=== PATIENT | male | born 1990 | race American Indian/Alaskan Native ===

== ENCOUNTER 2019-06-06 14:22 | Emergency (ER) | payer MEDICAID ==
--- NOTE | 2019-06-06 14:34 | Event Note ---
ED Screening Note ED Screening Note: Pt released from [facility] yesterday lives in a nursing home no HI/SI generalized abd pain that began last night N/V/D no sick contacts no fever PMHx DM, GERD, HTN, HLD, ADHD, pancreatitis, bipolar/schizoaffective, PTSD allergy: lamotrigine This initial assessment/diagnostic orders/clinical plan/treatment(s) is/are subject to change based on patients health status, clinical progression and re- assessment by fellow clinical providers in the ED. Further treatment and workup at subsequent clinical providers discretion. Patient/guardian urged not to elope from the ED as their condition may be serious if not clinically assessed and managed. Initial orders include: labs
[2019-06-06] MEDS ORDERED: ONDANSETRON 4 MG/2 ML INJ IV ONE (14:41)
[2019-06-06] MEDS ORDERED: SODIUM CHLORIDE 0.9% 1000 ML 1,000 ML IV ONE (14:41)
[2019-06-06] MEDS ORDERED: LOPERAMIDE 2 MG CAP PO ONE (14:41)
--- NOTE | 2019-06-06 14:43 | Emergency Department Report ---
ED N/V/D HPI - General Chief complaint: Nausea/Vomiting/Diarrhea Stated complaint: DIZZY/NAUSEA/RAPID HEART BEAT Time Seen by Provider: 06/06/19 14:31 Source: patient Mode of arrival: Ambulatory Limitations: No Limitations - History of Present Illness Initial comments: Mr. Duff is a 28-year-old male with history of insulin-dependent diabetes, ADHD, schizoaffective disorder, GERD, some edema, hypertension who was recently discharged from [facility] in [facility]. He developed diarrhea last night. Also developed vomiting today. Denies malaise. Rapid heartbeat. MD complaint: nausea, vomiting, diarrhea -: Gradual, Last night Description of Vomiting: food contents Description of Diarrhea: water Associated Abdominal Pain: No Severity: mild Consistency: constant Improves with: none Worsens with: none Context: sick contacts - Related Data Home Medications Medication Instructions Recorded Confirmed Last Taken diphenhydrAMINE [Benadryl CAP] 1 tab PO DAILY 06/06/19 06/06/19 Unknown metFORMIN [Glucophage] 1 tab PO BID 06/06/19 06/06/19 Unknown traZODone [Desyrel] 1 tab PO HS 06/06/19 06/06/19 Unknown Allergies Allergy/AdvReac Type Severity Reaction Status Date / Time lamotrigine [From Lamictal] Allergy Rash Verified 06/06/19 14:25 ED Review of Systems ROS: Stated complaint: DIZZY/NAUSEA/RAPID HEART BEAT Other details as noted in HPI Comment: All other systems reviewed and negative Constitutional: malaise. denies: fever Gastrointestinal: nausea, vomiting, diarrhea. denies: abdominal pain Musculoskeletal: denies: as per HPI Skin: denies: rash, lesions ED Past Medical Hx - Past Medical History Previous Medical History?: Yes Hx Hypertension: Yes Hx Diabetes: Yes Hx Psychiatric Treatment: Yes (ADHD/ SCHIZO EFFECTIVE DISORDER) Additional medical history: GERD/ HYPERLIPIDEMNIA - Social History Smoking Status: Never Smoker Substance Use Type: None - Medications Home Medications: Home Medications Medication Instructions Recorded Confirmed Last Taken Type diphenhydrAMINE [Benadryl CAP] 1 tab PO DAILY 06/06/19 06/06/19 Unknown History metFORMIN [Glucophage] 1 tab PO BID 06/06/19 06/06/19 Unknown History traZODone [Desyrel] 1 tab PO HS 06/06/19 06/06/19 Unknown History ED Physical Exam - General Limitations: No Limitations General appearance: alert, in no apparent distress - Head Head exam: Present: atraumatic, normocephalic - Eye Eye exam: Present: normal appearance - ENT ENT exam: Present: mucous membranes moist - Neck Neck exam: Present: normal inspection, full ROM - Respiratory Respiratory exam: Present: normal lung sounds bilaterally. Absent: respiratory distress, wheezes, rales, rhonchi - Cardiovascular Cardiovascular Exam: Present: regular rate, normal rhythm, normal heart sounds. Absent: systolic murmur, diastolic murmur, rubs, gallop - GI/Abdominal GI/Abdominal exam: Present: soft, normal bowel sounds. Absent: distended, tenderness, guarding, rebound - Rectal Rectal exam: Present: deferred - Extremities Exam Extremities exam: Present: normal inspection - Neurological Exam Neurological exam: Present: alert, oriented X3 - Psychiatric Psychiatric exam: Present: normal affect, normal mood - Skin Skin exam: Present: warm, dry, intact, normal color. Absent: rash ED Course Vital Signs 06/06/19 06/06/19 06/07/19 14:32 20:20 01:29 Temperature 98.0 F 98.1 F 97.6 F Pulse Rate 100 H 89 87 Respiratory 18 18 18 Rate Blood Pressure 121/86 Blood Pressure 119/67 95/55 [Right] O2 Sat by Pulse 96 94 96 Oximetry 06/07/19 06/07/19 06/08/19 14:45 20:39 01:05 Temperature 97.8 F 98.7 F 98.2 F Pulse Rate 99 H 105 H 74 Respiratory 20 16 18 Rate Blood Pressure Blood Pressure 125/70 132/93 101/61 [Right] O2 Sat by Pulse 97 96 Oximetry 06/08/19 08:00 Temperature 98.4 F Pulse Rate 85 Respiratory 18 Rate Blood Pressure Blood Pressure 113/74 [Right] O2 Sat by Pulse 100 Oximetry ED Medical Decision Making - Lab Data Result diagrams: 06/06/19 15:04 06/06/19 17:16 Laboratory Results - last 24 hr 06/06/19 06/06/19 06/06/19 14:38 15:04 15:04 WBC 8.6 RBC 4.63 Hgb 14.3 Hct 42.1 MCV 91 MCH 31 MCHC 34 RDW 13.6 Plt Count 205 Sodium 135 L Potassium 5.6 H Chloride 99.1 Carbon Dioxide 23 Anion Gap 19 BUN 11 Creatinine 0.7 L Estimated GFR > 60 BUN/Creatinine Ratio 16 Glucose 267 H POC Glucose 254 H Calcium 9.2 Total Bilirubin < 0.20 AST 40 ALT 19 Alkaline Phosphatase 85 Total Protein 7.8 Albumin 3.9 Albumin/Globulin Ratio 1.0 Lipase 21 - Medical Decision Making Gen presents with n/v/d. I suspect mild food poisoing. I received IVF. he tolerated meal here in the ED. MH goodwill ambassador was asked to provide consultation. Gen informed nurse that he has voices telling him to harm himself. These symptoms persisted even at discharge from [place] yesterday. The psychiatric team recommends inpatient treatment. Psychiatric team has submitted paperwork for Gen to return to [facility]. he currently does not have a specific plan to harm himself. Potassium elevated due to hemolysis. Will obtained repeat potassium. He is medically clear for psychiatric care. Awaiting. inpatient treatment acceptance to [facility] Mr. Duff was transferred to inpatient treatment facility [facility]. Critical care attestation.: If time is entered above; I have spent that time in minutes in the direct care of this critically ill patient, excluding procedure time. ED Disposition Clinical Impression: Food poisoning, Suicidal ideation, Auditory hallucination Disposition: [id number] PSY HOSP/PSY UNIT Is pt being admited?: No Does the pt Need Aspirin: No Condition: Stable
[2019-06-06 15:52] LABS: Albumin 3.9 g/dL (3.9-5); BUN/Creatinine Ratio 16; Blood Urea Nitrogen 11 mg/dL (9-20); Calcium 9.2 mg/dL (8.4-10.2); Hemolysis Index 244
[2019-06-06 15:53] LABS: Hematocrit 42.1 % (35.5-45.6); Hemoglobin 14.3 gm/dl (11.8-15.2); Mean Corpuscular HGB Conc 34 % (32-34); Mean Corpuscular Volume 91 fl (84-94); Platelet Count 205 K/mm3 (140-440); Red Blood Count 4.63 M/mm3 (3.65-5.03); Red Cell Distribution Width 13.6 % (13.2-15.2)
[2019-06-06 15:59] LABS: Alanine Aminotransferase 19 units/L (7-56)
[2019-06-06 18:12] LABS: Bacteria,Urine 1+ /HPF (Negative); Bilirubin,Urine NEG (Negative); Blood,Urine NEG (Negative); Color,Urine Straw (Yellow); Protein,Urine <15 mg/dL mg/dL (Negative); Urobilinogen,Urine < 2.0 mg/dL (<2.0)
[2019-06-06 18:13] LABS: Amphetamine Screen,Urine PRESUMPTIVE NEGATIVE; Benzodiazepines Screen,Urine PRESUMPTIVE NEGATIVE; Cannabinoid Screen,Urine PRESUMPTIVE NEGATIVE; Cocaine Screen,Urine PRESUMPTIVE NEGATIVE; Methadone Screen,Urine PRESUMPTIVE NEGATIVE; Opiate Screen,Urine PRESUMPTIVE NEGATIVE
[2019-06-06] MEDS ORDERED: INSULIN REGULAR, HUMAN 100 UNITS/1 ML IV ONE (20:14)
[2019-06-06] MEDS: metFORMIN 500 MG TAB PO SCH (22:05)
[2019-06-06] MEDS: traZODone 50 MG TAB PO SCH (22:05)
[2019-06-07] MEDS: metFORMIN 500 MG TAB PO SCH ×2 (08:20→18:01)
[2019-06-07] MEDS: diphenhydrAMINE 50 MG CAP PO SCH ×2 (12:51→19:51)
[2019-06-07] MEDS ORDERED: PANTOPRAZOLE 20 MG TAB PO ONE (17:38)
[2019-06-07] MEDS ORDERED: PANTOPRAZOLE 40 MG TAB PO ONE (17:40)
[2019-06-07] MEDS: traZODone 50 MG TAB PO SCH (22:41)
[2019-06-08] MEDS: metFORMIN 500 MG TAB PO SCH (08:30)
[2019-06-08] MEDS: diphenhydrAMINE 50 MG CAP PO SCH (11:17)
[2019-06-08 12:16] VITALS: BP 113/74
== END 2019-06-08 13:22 ==
LOC: ED 14:22
DX: A05.9 Bacterial foodborne intoxication, unspecified (principal); R45.851 Suicidal ideations; R44.0 Auditory hallucinations; I10 Essential (primary) hypertension; E11.9 Type 2 diabetes mellitus without complications; F25.9 Schizoaffective disorder, unspecified; E78.5 Hyperlipidemia, unspecified
CPT/HCPCS: 36415; 80053; 80307; 81001; 82962; 83690; 84132; 85027; 96361; 96374; 96375; 99285; J2405; J7030; 80320; G0480; J1815